=== PATIENT | female | born 1980 | race Caucasian/White ===

== ENCOUNTER 2022-05-01 12:33 | Outpatient (CLI) | payer OTHER ==
[2022-05-01 14:05] LABS: Hemoglobin 14.7 g/dL (12.0-15.5); Mean Corpuscular HGB CONC 33.1 g/dL (32.0-36.0); Mean Corpuscular Hemoglobin 33.1 pg (27.0-33.0); Mean Platelet Volume 10.8 fl (7.4-10.4); Platelet Count 264 10x3/uL (150-450); RBC Distribution Width 12.1 % (11.5-14.5); Red Blood Cell (RBC) Count 4.44 10x6/uL (3.90-5.03); White Blood Cell (WBC) Count 5.1 10x3/uL (3.5-10.5)
[2022-05-01 14:18] LABS: BHCG - Serum Negative (NEGATIVE); Pregs Control Background? CLEAR/WHITE (CLR/WHITE); Pregs Control Bar Appear? YES (CONTROL BAR)
== END 2022-05-01 12:34 | disposition home or self-care (01) ==
LOC: CSHLAB 12:33
PROVIDERS: ATTEND Podiatrist
DX: Z01.812 Encounter for preprocedural laboratory examination (principal); D36.13 Benign neoplasm of peripheral nerves and autonomic nervous system of lower limb, including hip; G57.82 Other specified mononeuropathies of left lower limb; Z20.822 Contact with and (suspected) exposure to COVID-19
CPT/HCPCS: 84703; 85027; 87811

== ENCOUNTER 2022-05-06 10:06 | Day surgery (SDC) | payer OTHER ==
[2022-05-02 16:06] VITALS: BMI 27.3
[2022-05-06] MEDS ORDERED: Lidocaine 1% MPF 2 ML VIAL ONE (10:28)
[2022-05-06] MEDS ORDERED: Bupivacaine PF 0.5% 30 ML VIAL ONE (11:01)
[2022-05-06] MEDS ORDERED: Neomycin-Polymyxin 1 ML AMP ONE (11:01)
[2022-05-06] MEDS ORDERED: CEFAZOLIN 2 GM VIAL ONE (11:56)
[2022-05-06] MEDS ORDERED: Fentanyl 100 MCG/2 ML VIAL ONE (12:07)
[2022-05-06] MEDS ORDERED: PROPOFOL 20 ML ONE (12:07)
[2022-05-06] MEDS ORDERED: Lidocaine 2% PF 5 ML VIAL ONE (12:09)
[2022-05-06] MEDS ORDERED: Dexamethasone 20 MG/5 ML VIAL ONE (12:09)
[2022-05-06] MEDS ORDERED: Ondansetron PF 4 MG/2 ML Vial ONE (12:09)
== END 2022-05-06 14:25 | disposition home or self-care (01) ==
LOC: CSHSDC 10:06
PROVIDERS: ATTEND Podiatrist
PROC: 01BG0ZZ Excision of Tibial Nerve, Open Approach (ICD-10-PCS; principal; 2022-05-06)
DX: G57.82 Other specified mononeuropathies of left lower limb (principal); Z79.899 Other long term (current) drug therapy; Z88.8 Allergy status to other drugs, medicaments and biological substances; Z20.822 Contact with and (suspected) exposure to COVID-19
CPT/HCPCS: 88304; J0690; J1100; J2001; J2405; J2704; J3010; S0020